=== PATIENT | male | born 2000 | race Caucasian/White ===

== ENCOUNTER 2025-03-22 16:46 | Emergency (ER) | payer MEDICARE ==
[~2025-03-22] VITALS: Ht 177.8 cm; Wt 90.7 kg
[2025-03-22] MEDS ORDERED: IOHEXOL 300 MG/ML 100 ML VIAL IV ONE (16:50)
[2025-03-22] MEDS ORDERED: SODIUM CHLORIDE 0.9% 1,000 ML IV ONE (16:50)
[2025-03-22] MEDS ORDERED: Ondansetron Hydrochloride 4 MG/2 ML VIAL IV ONE (16:50)
[2025-03-22 17:14] LABS: BASO # 0.0 10*3/uL (0.0-0.1); BASO % 0.3 % (0.0-1.0); EOS # 0.1 10*3/uL (0.0-0.4); EOS % 0.8 % (1.0-4.0); MEAN CELL VOLUME 82.3 fl (80.0-94.0); MEAN CORPUSCULAR HGB 25.4 pg (27.0-31.0); MEAN PLATELET VOLUME 8.0 fl (9.6-12.3); MONO # 0.7 10*3/uL (0.1-1.0); MONO % 7.6 % (3.0-9.0); NEUT # 8.2 10*3/uL (2.3-7.9); NEUT % 85.7 % (47.0-73.0); NUCLEATED RED BLOOD CELL 0.0 % (0.0-0.0); NUCLEATED RED BLOOD CELL 0.0 10*3/uL (0.0-0.0); PLATELET COUNT AUTOMATED 585 10*3/uL (130-400); RED CELL DISTRI WIDTH 14.4 % (0-14.5)
[2025-03-22 17:32] LABS: BUN 8 mg/dl (9-23)
[2025-03-22 20:52] LABS: BILIRUBIN Negative (Negative); BLOOD Negative (Negative); CLARITY Clear (Clear); COLOR Yellow (Yellow); KETONE 2+ (Negative); LEUKO ESTERASE Negative (Negative); NITRITE Negative (Negative); PH 5.5 (4.5-8.0); SPECIFIC GRAVITY >= 1.030 (1.001-1.030); UROBILINOGEN 0.2 E.U./dl (0.0-1.0)
[2025-03-22] MEDS ORDERED: Ciprofloxacin Hydrochloride 500 MG TAB PO ONE (21:45)
[2025-03-22] MEDS ORDERED: metroNIDAZOLE 500 MG TAB PO ONE (21:45)
[2025-03-22] MEDS ORDERED: PREDNISONE20 M1 PO (21:48)
[2025-03-22] MEDS ORDERED: CIPRO500 MG PO (21:48)
[2025-03-22] MEDS ORDERED: METRONIDAZOLE500 M1 PO (21:48)
== END 2025-03-22 21:54 | disposition home or self-care (01) ==
LOC: ED 16:46
PROVIDERS: Emergency Medicine
DX: D64.9 Anemia, unspecified (principal); K50.119 Crohn's disease of large intestine with unspecified complications; Z88.8 Allergy status to other drugs, medicaments and biological substances